=== PATIENT | female | born 1935 | race Caucasian/White ===

== ENCOUNTER → 2016-11-28 | Outpatient (CLI) | payer MEDICARE, MEDICAID ==
--- NOTE | 2016-11-28 17:41 | REP ---
CHEST, TWO VIEWS: REASON: Cough. COMPARISON: None. There is a patchy opacity in the left lower lobe and lingula The pleural angles are sharp and the heart is not enlarged. The osseous structures are within normal limits. IMPRESSION: Lingular and left lower lobe pneumonia. Signed by Tyler Workman DO 11/28/2016 06:25 P
== END ==
LOC: M ADAMS 15:19
PROVIDERS: ATTEND Physician Assistant Medical
DX: J18.1 Lobar pneumonia, unspecified organism (principal)

== ENCOUNTER → 2016-12-13 | Outpatient (REF) | payer MEDICARE, MEDICAID ==
[2016-12-13 13:57] LABS: BLOOD UREA NITROGEN 17 MG/DL (7-18); CREATININE FOR GFR 0.81 MG/DL (0.55-1.02); GLOMERULAR FILTRATION RATE > 60.0 (>32)
== END ==
LOC: M LABDRWAD 12:21
PROVIDERS: ATTEND Internal Medicine Pulmonary Disease
DX: R91.8 Other nonspecific abnormal finding of lung field (principal)

== ENCOUNTER → 2016-12-18 | Outpatient (CLI) | payer MEDICARE, MEDICAID ==
[~2016-12-18] MED LIST: ISOVUE-370 76% 100ML VIAL (Q9967) As Ordered ONE
--- NOTE | 2016-12-18 17:07 | REP ---
CT CHEST WITH CONTRAST: HISTORY: Followup abnormal left basilar opacity measuring 3.2 x 2 x 1.6 cm. CONTRAST: 100 mL Isovue-370 The mediastinum and pulmonary vanessa are stable. There are no pleural or pericardial effusions. The imaged upper abdomen is within normal limits. The images osseous structures are stable and intact. Evaluation of the lung vargas show the left lower lobe pleural based mass density to have increased rather significantly in size, today measuring approximately 6.2 x 5 x 3.7 cm. The lung vargas are otherwise unchanged. IMPRESSION: Enlarging left lower lobe mass density as described above. Signed by Tyler Workman DO 12/18/2016 06:03 P
== END ==
LOC: M RAD 10:48
PROVIDERS: ATTEND Internal Medicine Pulmonary Disease
DX: R91.8 Other nonspecific abnormal finding of lung field (principal)
CPT/HCPCS: 71260; Q9967

== ENCOUNTER → 2017-02-01 | Outpatient (REF) | payer MEDICARE, MEDICAID | LOC: M LAB REF 17:25 | PROVIDERS: ATTEND Obstetrics & Gynecology | DX: N39.46 Mixed incontinence (principal) ==

== ENCOUNTER → 2017-04-25 | Outpatient (REF) | payer MEDICARE, MEDICAID ==
[2017-04-25 13:53] LABS: BLOOD UREA NITROGEN 16 MG/DL (7-18); CREATININE FOR GFR 0.77 MG/DL (0.55-1.02); GLOMERULAR FILTRATION RATE > 60.0 (>32)
== END ==
LOC: M LAB REF 12:38
PROVIDERS: ATTEND Internal Medicine Pulmonary Disease
DX: R91.8 Other nonspecific abnormal finding of lung field (principal)

== ENCOUNTER → 2017-04-29 | Outpatient (CLI) | payer MEDICARE, MEDICAID ==
--- NOTE | 2017-04-29 13:40 | REP ---
CT of the chest with IV contrast: History: Abnormal lung field finding. Comparison chest CT study December 18, 2016. The most remote prior chest CT study is from November 17, 2014. CT contrast dose: 75 mL of intravenous Isovue 370. CT findings: A chronic area of jairo bronchovascular lung opacification is seen in the left lower lobe posterior basal segment with air bronchograms again noted within the lesion. This has had a waxing and waning appearance on previous CT studies dating back to October of 2014. The jairo bronchovascular component currently has dimensions of 3.6 x 2.5 cm in transverse dimension. There are alveolar parenchymal opacities posterior lung base and medial lung base measuring up to 3.8 cm in diameter associated with this. In comparison with the most recent prior study of December 18, 2016, there is no significant change. No new pulmonary opacity is seen. No hilar or mediastinal mass or adenopathy is observed. Vascular calcification is again noted. No bony destructive lesion is seen. No adrenal lesion is observed. There is mild diffuse fatty infiltration of the liver. Impression: Stable left lower lobe jairo bronchovascular opacity with adjacent parenchymal consolidation unchanged from the most recent prior study of December 18, 2016. Mild diffuse fatty infiltration of the liver. Signed by Juma Vieyra MD 04/29/2017 02:14 P
== END ==
LOC: M RAD 11:22
PROVIDERS: ATTEND Internal Medicine Pulmonary Disease
DX: R91.8 Other nonspecific abnormal finding of lung field (principal)
CPT/HCPCS: 71260; Q9967

== ENCOUNTER → 2018-05-08 | Outpatient (CLI) | payer MEDICARE, MEDICAID | LOC: M RAD 10:04 | DX: R91.8 Other nonspecific abnormal finding of lung field (principal); J47.9 Bronchiectasis, uncomplicated | CPT/HCPCS: 71250 ==

== ENCOUNTER 2018-11-07 18:28 | Emergency (ER) | payer MEDICARE, MEDICAID ==
[~2018-11-07] VITALS: Ht 152.4 cm; Wt 99.1 kg
[2018-11-07] MEDS ORDERED: GABA-1171 PO (18:56)
[2018-11-07] MEDS ORDERED: CAND32TA9 PO (18:56)
[2018-11-07] MEDS ORDERED: VESI10TA2 PO (18:56)
[2018-11-07] MEDS ORDERED: POTA1TAB23 PO (18:56)
[2018-11-07] MEDS ORDERED: SIMV40TA2 PO (18:56)
[2018-11-07] MEDS ORDERED: ECOT81TA5 PO (18:56)
[2018-11-07] MEDS ORDERED: MELO7.5T35 PO (18:56)
[2018-11-07] MEDS ORDERED: OMEP-221 PO (18:56)
[2018-11-07] MEDS ORDERED: FURO20TA2 PO (18:56)
[2018-11-07] MEDS ORDERED: MYRB25TA PO (18:56)
[2018-11-07] MEDS ORDERED: LEVOTAB10 PO (18:56)
[2018-11-07] MEDS ORDERED: METF500T13 PO (18:56)
[2018-11-07] MEDS ORDERED: VITA200020 PO (18:56)
[2018-11-07] MEDS ORDERED: LevoFLOXacin IV 500 MG in APPROPRIATE DILUENT 1 EA IV ONE (19:15)
[2018-11-07] MEDS ORDERED: IPRATROPIUM 0.5MG/ALBUTEROL 2.5MG INH SOL UD 3ML (DUONEB)(J7620) NEB ONE (19:15)
[2018-11-07] MEDS ORDERED: NS 1,000 ML IV ONE (19:15)
--- NOTE | 2018-11-07 19:38 | REP ---
Portable chest, 06:59 p.m., single AP view with the patient upright: Comparison is 2007 : There is an infiltrate inferiorly in the left lung as an interval change. Right lung is clear. Cardiac size is normal. The vanessa, mediastinum, and skeletal structures are unremarkable. Impression: Infiltrate inferiorly in the left lung. Electronically Signed by Gulshan Palumbo MD 11/07/2018 07:29 P
[2018-11-07 19:40] LABS: BASO # 0.1 10^3/uL (0.0-0.2); BASO % 0.4 % (0.0-1.0); EOS % 0.2 % (0.0-3.0); HEMATOCRIT 39.9 % (36.0-47.0); HEMOGLOBIN 13.2 g/dl (12.0-15.5); LYMPH # 1.6 10^3/uL (1.5-4.5); LYMPH % 8.1 % (24.0-44.0); MEAN CORPUSCULAR HEMOGLOBIN 29.5 pg (27.0-33.0); MEAN CORPUSCULAR HGB CONC 33.1 g/dl (32.0-36.5); MEAN CORPUSCULAR VOLUME 89.1 fl (80.0-96.0); MONO % 12.4 % (0.0-5.0); NEUTROPHILS # 15.6 10^3/uL (1.8-7.7); NEUTROPHILS % 78.3 % (36.0-66.0); PLATELET COUNT, AUTOMATED 230 10^3/uL (150-450); RED BLOOD COUNT 4.48 10^6/uL (4.00-5.40); WHITE BLOOD COUNT 19.9 10^3/uL (4.0-10.0)
[2018-11-07 20:10] LABS: MONO # 2.5 10^3/uL (0.0-0.8)
[2018-11-07 20:13] LABS: ALBUMIN 3.4 GM/DL (3.2-5.2); ALT/SGPT 34 U/L (12-78); BILIRUBIN,DIRECT 0.7 MG/DL (0.0-0.2); BILIRUBIN,TOTAL 1.5 MG/DL (0.2-1.0); BLOOD UREA NITROGEN 16 MG/DL (7-18); CALCIUM LEVEL 9.1 MG/DL (8.8-10.2); CARBON DIOXIDE LEVEL 27 MEQ/L (21-32); CHLORIDE LEVEL 101 MEQ/L (98-107); CK-MB VALUE MASS < 1.0 NG/ML (<3.6); CPK CREATINE PHOSPHOKINASE 61 U/L (26-192); CREATININE FOR GFR 0.99 MG/DL (0.55-1.30); GLOMERULAR FILTRATION RATE 57.2 (>32); GLUCOSE, FASTING 206 MG/DL (70-100); MB/CK RELATIVE INDEX 1.64 (< OR =4); POTASSIUM SERUM 4.3 MEQ/L (3.5-5.1); SODIUM LEVEL 136 MEQ/L (136-145); THYROID STIMULATING HORMONE 0.986 uIU/ML (0.358-3.740); TOTAL PROTEIN 6.8 GM/DL (6.4-8.2); TROPONIN I < 0.02 NG/ML (< 0.10)
--- NOTE | 2018-11-07 20:14 | REPVR ---
EXAM: CT Head Without Contrast EXAM DATE/TIME: 11/07/2018 7:46 PM CLINICAL HISTORY: 83 years old, female; Signs and symptoms; Altered mental status/memory loss; Confusion or disorientation TECHNIQUE: Imaging protocol: Axial computed tomography images of the head/brain without contrast. Radiation optimization: All CT scans at this facility use at least one of these dose optimization techniques: automated exposure control; mA and/or kV adjustment per patient size (includes targeted exams where dose is matched to clinical indication); or iterative reconstruction. COMPARISON: PT PET/CT SKULL BASE TO MID THIGH - OUTSIDE PRIOR 11/19/2014 12:28 PM FINDINGS: Brain: Slight prominence of a perivascular space at the right base of the brain. 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 Ventricles: Normal. No ventriculomegaly. Bones/joints: Unremarkable. No acute fracture. Sinuses: Visualized sinuses are unremarkable. No acute sinusitis. Mastoid air cells: Visualized mastoid air cells are unremarkable. No mastoid effusion. Soft tissues: Unremarkable. IMPRESSION: 1. 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 2. Otherwise negative noncontrast head CT. Electronically signed by: Umesh Machado On 11/07/2018 20:13:58 PM
[2018-11-07] MEDS ORDERED: LEVA1TAB2 PO ×3 (22:02→22:23)
[2018-11-07 22:06] VITALS: BP 118/52
--- NOTE | 2018-11-09 20:31 | ECGEPIP ---
Stationary ECG Study [facility] - ED Test Date: 2018-11-07 Pat Name: CLAUDIA TINAJERO Department: Room: - Gender: F Contact Officer: gt : [id number] Requested By: BRENDA Colvin Order Number: [id number] Reading MD: Lexi Stanton Measurements Intervals [place] Rate: 91 P: 26 CT: 208 QRS: -18 QRSD: 96 T: 40 QT: 360 QTc: 445 Interpretive Statements SINUS RHYTHM NONSPECIFIC T-WAVE ABNORMALITY NO PRIOR FOR COMPARISON Electronically Signed On 11-09-2018 20:31:13 EDT by Lexi Stanton
== END 2018-11-07 22:27 | disposition home or self-care (01) ==
LOC: M ED 18:28
DX: J18.1 Lobar pneumonia, unspecified organism (principal); E11.9 Type 2 diabetes mellitus without complications; I10 Essential (primary) hypertension; E78.9 Disorder of lipoprotein metabolism, unspecified; K21.9 Gastro-esophageal reflux disease without esophagitis; E55.9 Vitamin D deficiency, unspecified; Z86.73 Personal history of transient ischemic attack (TIA), and cerebral infarction without residual deficits; Z79.899 Other long term (current) drug therapy; Z79.84 Long term (current) use of oral hypoglycemic drugs; Z79.82 Long term (current) use of aspirin; Z88.1 Allergy status to other antibiotic agents; Z88.2 Allergy status to sulfonamides
CPT/HCPCS: 70450; 71045; 80048; 80076; 82550; 82553; 84443; 84484; 85025; 93005; 93041; 94640; 94760; 96365; 96366; 99285; J1956

== ENCOUNTER → 2018-11-11 | Outpatient (REF) | payer MEDICARE, MEDICAID ==
[~2018-11-11] MED LIST changes: +CAND32TA9 PO; +ECOT81TA5 PO; +FURO20TA2 PO; +GABA-1171 PO; -ISOVUE-370 76% 100ML VIAL (Q9967) As Ordered ONE; +LEVA1TAB2 PO; +LEVOTAB10 PO; +MELO7.5T35 PO; +METF500T13 PO; +MYRB25TA PO; +OMEP-221 PO; +POTA1TAB23 PO; +SIMV40TA2 PO; +VESI10TA2 PO; +VITA200020 PO
== END ==
LOC: M LAB REF 17:18
PROVIDERS: ATTEND Internal Medicine
DX: J18.9 Pneumonia, unspecified organism (principal)

== ENCOUNTER → 2018-11-25 | Outpatient (CLI) | payer MEDICARE, MEDICAID ==
--- NOTE | 2018-11-25 14:53 | REP ---
REASON FOR EXAM: Followup left lower lobe density. All prior chest CTs were reviewed, the latest of which is dated 05/08/2018. The lack of intravenous contrast decreases the sensitivity of the exam. There is mediastinal and suspected hilar adenopathy. This represents a change from the latest prior of 05/08/2018. There is a small left pleural effusion representing a change from the prior exam of 05/08/2018. There is no evidence of a pericardial effusion. There is no significant change in the appearance of the imaged upper abdomen or imaged osseous structures. Evaluation of the lung vargas shows a new asymmetric density in the posterior segment of the right upper lobe with a ground glass appearance and abutting the major fissure measuring 2.3 cm. Patchy asymmetric densities are seen in conjunction with this new finding in the right upper lobe and are seen in the right lower lobe increased from the prior exam. There is a mass like density/consolidation in the left lower lobe which today measures approximately 6.6 x 4.9 x 5.6 cm. IMPRESSION: Significantly worsened findings with new abnormal lung field opacities and increasing densities along with a new left pleural effusion and adenopathy in the mediastinum and pulmonary vanessa as described above. Malignancy versus infectious etiology. Electronically Signed by Tyler Workman DO 11/25/2018 03:47 P
== END ==
LOC: M RAD 13:43
PROVIDERS: ATTEND Internal Medicine Pulmonary Disease
DX: R91.8 Other nonspecific abnormal finding of lung field (principal)

== ENCOUNTER → 2018-11-27 | Outpatient (REF) | payer MEDICARE, MEDICAID ==
[~2018-11-27] MED LIST changes: +AZEL1SPR3 NARES; +FLUT11IN INH; +LEVO25TA5 PO; +LOSA50TA88 PO; +VENTAER INH
== END ==
LOC: M LAB REF 13:24
PROVIDERS: ATTEND Internal Medicine Pulmonary Disease
DX: J15.8 Pneumonia due to other specified bacteria (principal)

== ENCOUNTER → 2019-01-05 | Outpatient (CLI) | payer MEDICARE, MEDICAID ==
[~2019-01-05] MED LIST changes: +AZIT500T2 PO
--- NOTE | 2019-01-05 10:20 | REP ---
Chest x-ray: Two views. History: Pneumonia. Comparison study: December 14, 2018. Findings: Today's exam again demonstrates moderate area of plate-like atelectasis in the left base. No air fluid level is visible. The pleural angles are sharp bilaterally both anteriorly and laterally. There is no evidence of pneumothorax. Cardiomediastinal silhouette is unremarkable. Lung vargas are otherwise clear. The discoid atelectatic changes in the left base are slightly improved. No new infiltrate. Electronically Signed by Juma Vieyra MD 01/05/2019 10:28 A
== END ==
LOC: M RAD 08:58
PROVIDERS: ATTEND Internal Medicine Pulmonary Disease
DX: J15.8 Pneumonia due to other specified bacteria (principal)